=== PATIENT | male | born 1950 | race Caucasian/White ===

== ENCOUNTER → 2017-05-04 | Day surgery (SDC) | payer OTHER ==
[~2017-05-04] MED LIST: ALEVE220 M1 PO; AMLODIPINE BESYL5 MG PO; ASPIRIN81 M1 PO; AZITHROMYCIN250 MG PO; COZAAR25 MG PO; FLAX SEED OIL1000 M1 PO; HYZAAR 100-25 T1 TAB PO; MULTIVITAMIN1 UDCAP PO; OMEPRAZOLE40 MG PO; PROBIOTIC1 EAC1 PO; RANITIDINE HCL150 M1 PO; VIAGRA PO; VITAMIN B6200 MG PO; VITAMIN D3 PO
--- NOTE | ~2017-05-04 | OR ---
Unit #: [id number] #: [id number] Patient: MAHSA LUGO [id number] [address] [place], [place] [address] [id number] O MR#: [id number] NAME: MAHSA LUGO ROOM: Date of Procedure: 05/04/2017 Admission Date: 05/04/2017 Surgeon: Abelino Ferrera M.D. : 1950 Attending Physician: Abelino Ferrera M.D. OPERATIVE REPORT JOB NOTE: CC: DR. JUAN ANTONIO DE LEÓN. PREOPERATIVE DIAGNOSIS Epigastric pain. POSTOPERATIVE DIAGNOSIS Epigastric pain. PROCEDURES PERFORMED 1. Esophagogastroduodenoscopy. 2. Biopsy of antrum for Helicobacter pylori testing. ANESTHESIA Monitored anesthesia care. FINDINGS The patient was found to have some mild gastritis, mild distal esophagitis. SPECIMENS Sent to Pathology. COMPLICATIONS None apparent. CONDITION The patient tolerated the procedure well. INDICATIONS FOR PROCEDURE The patient is a 66-year-old white male, who presents at this time with upper abdominal pain and discomfort especially after eating. He presents at this time for evaluation by upper endoscopy. DESCRIPTION OF PROCEDURE After obtaining informed consent, the patient was brought to the endoscopy suite and after adequate monitored anesthesia care, had the endoscope placed through the mouth into the upper esophagus under direct vision. It was advanced to the second and third portion of the duodenum without difficulty with the lumen always in view. The duodenum was normal as was the duodenal bulb. The pylorus opened normally. There was some mild distal gastritis present and a biopsy was obtained for Helicobacter pylori testing. On retroflexing back to the GE junction, no hiatal hernia was seen. The proximal third, middle third, or incisura had no abnormality Unit #: [id number] #: [id number] Patient: MAHSA LUGO seen. On pulling back above the GE junction, there was no stenosis, stricture, or neoplasm seen. There was some very mild distal esophagitis. The remaining portion of the esophagus was within normal limits. Laryngeal structures were grossly normal as viewed from above. The scope was removed without difficulty. The patient tolerated the procedure well and went from the endoscopy suite to the recovery area in stable condition. RECOMMENDATIONS Gastroesophageal reflux sheet given. The patient is scheduled for CT scan of abdomen and pelvis next week and will follow up with Dr. Melton after that. Dictated by... Amada Campbell/roc TD: 05/04/2017 16:27 JOB #: [id number] CC: [facility] OPERATIVE REPORT Page 1 of 1 X Abelino Ferrera MD X PROCEDURE OPERATIVE NOTE
== END | disposition home or self-care (01) ==
LOC: COPS 07:50
PROVIDERS: Surgery
PROC: 0DB78ZX Excision of Stomach, Pylorus, Via Natural or Artificial Opening Endoscopic, Diagnostic (ICD-10-PCS; principal; 2017-05-04 10:00)
DX: K29.70 Gastritis, unspecified, without bleeding (principal); K21.0 Gastro-esophageal reflux disease with esophagitis; I10 Essential (primary) hypertension; R07.89 Other chest pain; Z79.899 Other long term (current) drug therapy; Z79.82 Long term (current) use of aspirin; Z87.442 Personal history of urinary calculi; Z88.8 Allergy status to other drugs, medicaments and biological substances; Z98.890 Other specified postprocedural states
CPT/HCPCS: 87077

== ENCOUNTER → 2017-05-10 | Outpatient (CLI) | payer OTHER ==
--- NOTE | ~2017-05-10 | NM22 ---
[facility] A Service of [facility] RADIOLOGY TEXT RESULTS PATIENT: MAHSA LUGO LOCATION: [facility] : [birth year] UNIT #: [id number] AGE: [address]: Ricky Melton MD SEX: M ORDER DR: [id number] [facility] [address] [place], [place] [address] [id number] O MR#: [id number] Acc #: [id number] NAME: MAHSA LUGO : 1950 SEX: M STUDY DATE/TIME: 05/10/2017 11:50 UNIT: US ROOM: STUDY DESCRIPTION: NM Hepatobiliary W GB Pharm Attending Physician: Ricky Melton Jr., M.D. Referring Physician: Ricky Melton Jr., M.D. Ordering Physician: Ricky Melton Jr., M.D. Primary Care Physician: Baldomero Pham M.D. MEDICAL IMAGING REPORT This report is preliminary unless electronic signature is present EXAM HIDA scan with Kinevac CCK, 05/10/2017. HISTORY Pressure in chest and dysphagia after eating. Atypical chest pain, acid reflux disease. Symptoms for 3 weeks. FINDINGS The patient received intravenous injection of 5.95 mCi of technetium 99m tagged Choletec for hepatobiliary imaging. One hour following the injection of the radiopharmaceutical, the patient received an intravenous injection of 1.7 mcg of Kinevac. There is homogeneous distribution of the radiotracer throughout the liver. Gallbladder activity was seen by 30 minutes postinjection of the radiopharmaceutical. Following Kinevac injection, the gallbladder ejection fraction was 75.2% (normal is greater than 30%). IMPRESSION Normal HIDA scan with gallbladder ejection fraction of 75.2%. Dictated by... Miguel Herman M.D. THIS IS AN ELECTRONICALLY VERIFIED REPORT Miguel Herman M.D. at 05/11/2017 7:28 AM BRYAN/laura TD: 05/10/2017 16:01 JOB #: [id number] MEDICAL IMAGING REPORT Page 1 of 1 COPY
--- NOTE | ~2017-05-10 | US5 ---
[facility] A Service of [facility] RADIOLOGY TEXT RESULTS PATIENT: MAHSA LUGO LOCATION: [facility] : [birth year] UNIT #: [id number] AGE: [address]: Ricky Melton MD SEX: M ORDER DR: [id number] [facility] [address]. [place], [place] [address] [id number] O MR#: [id number] Acc #: [id number] NAME: MAHSA LUGO : 1950 SEX: M STUDY DATE/TIME: 05/10/2017 10:21 UNIT: [facility] ROOM: STUDY DESCRIPTION: US Abdominal Complete Attending Physician: Ricky Melton Jr., M.D. Referring Physician: Ricky Melton Jr., M.D. Ordering Physician: Ricky Melton Jr., M.D. Primary Care Physician: Baldomero Pham M.D. MEDICAL IMAGING REPORT This report is preliminary unless electronic signature is present EXAM Abdominal ultrasound complete 05/10/2017 HISTORY Postprandial epigastric abdominal pain for 3 weeks, atypical chest pain, dysphagia and gastroesophageal reflux disease. FINDINGS The liver demonstrates an increase in echotexture with attenuation of the ultrasound beam characteristic of fatty infiltration. There are multiple hepatic cysts. No solid mass lesions are seen within the liver. The intra and extrahepatic bile ducts are not dilated. The gallbladder is normal with no evidence of cholelithiasis, wall thickening or pericholecystic fluid. The common duct measures 5 mm. The pancreas and spleen are normal. The spleen measures 11.2 cm in greatest diameter. The visualized portions of the abdominal aorta and inferior vena cava are within normal limits. Small bilateral renal cysts are noted. IMPRESSION 1. Multiple hepatic cysts. 2. Normal gallbladder. 3. Bilateral renal cysts. Dictated by... Miguel Herman M.D. THIS IS AN ELECTRONICALLY VERIFIED REPORT Miguel Herman M.D. at 05/11/2017 7:28 AM BRYAN/xi TD: 05/10/2017 14:43 JOB #: [id number] [facility] A Service of [facility] RADIOLOGY TEXT RESULTS PATIENT: MAHSA LUGO LOCATION: [facility] #: [id number] : [birth year] UNIT #: [id number] AGE: [address]: Ricky Melton MD SEX: M ORDER DR: MEDICAL IMAGING REPORT Page 1 of 1 COPY
== END | disposition home or self-care (01) ==
LOC: CGUS 09:42
DX: K21.9 Gastro-esophageal reflux disease without esophagitis (principal); R07.89 Other chest pain; K76.89 Other specified diseases of liver; Q61.02 Congenital multiple renal cysts
CPT/HCPCS: 76700; 78227; A9537; J2805